=== PATIENT | male | born 1970 ===

== ENCOUNTER → 2021-02-17 | Day surgery (SDC) | payer OTHER ==
[2021-02-15 15:45] LABS: CALCIUM 9.4 mg/dL (8.4-10.2); CREATININE, SERUM 0.96 mg/dL (0.72-1.25)
[~2021-02-17] MED LIST: ACETAMINOPHEN-1 EAC4 PO; ACETAMINOPHEN/CODEINE 300MG - 30MG TAB ONE; BUPIVACAINE HCL 0.5% INJ 30 ML VIAL INJ ONE; FENTANYL CITRATE/PF 100MCG/2 ML INJ ONE; KETOROLAC TROMETHAMINE 30 MG/ML VIAL ONE; LIDOCAINE HCL 2% LOCAL INJ 5 ML SDV VIAL INJ ONE; MIDAZOLAM HCL 2 MG/2 ML VIAL ONE; ONDANSETRON HCL INJ 2MG/ML 2ML 2 MG/ML VIAL ONE; POVIDONE IODINE 0.05% 0.05 % ML PO ONE; PROPOFOL IV EMULSION 10 MG/ML 20 ML VIAL ONE; SEVOFLURANE INHAL SOLN 250 ML PEN BTL ONE; SODIUM CHLORIDE 0.9% 50ML 100 ML ONE
[2021-02-17 09:35] VITALS: BP 132/84
== END | disposition home or self-care (01) ==
LOC: OR 06:32
PROVIDERS: ATTEND Specialist
DX: S83.222A Peripheral tear of medial meniscus, current injury, left knee, initial encounter (principal); S83.262A Peripheral tear of lateral meniscus, current injury, left knee, initial encounter; S83.512A Sprain of anterior cruciate ligament of left knee, initial encounter; M17.12 Unilateral primary osteoarthritis, left knee; M23.42 Loose body in knee, left knee; M22.42 Chondromalacia patellae, left knee; W01.0XXA Fall on same level from slipping, tripping and stumbling without subsequent striking against object, initial encounter; Y92.89 Other specified places as the place of occurrence of the external cause; Y99.0 Civilian activity done for income or pay; Z01.810 Encounter for preprocedural cardiovascular examination; Z01.812 Encounter for preprocedural laboratory examination; Z20.822 Contact with and (suspected) exposure to COVID-19; Z86.16 Personal history of COVID-19
CPT/HCPCS: 29880; 36415 ×2; 80048; 82948; 93005; J0690; J1885; J2001; J2250; J2405; J2704; J3010; U0002